=== PATIENT | female | born 1980 | race Caucasian/White ===

== ENCOUNTER 2017-09-03 17:08 | Emergency (ER) | payer OTHER ==
[~2017-09-03] VITALS: Ht 165.1 cm; Wt 90.0 kg
[~2017-09-03 17:08] MED LIST: MEDDOSEPAK PO; PRENATA6 PO
[2017-09-03] MEDS ORDERED: AMOX/K CLAV875 M1 PO (18:15)
[2017-09-03] MEDS ORDERED: FLOXIN OTIC0.3 % OT (18:15)
[2017-09-03] MEDS ORDERED: LORTAB 1010 MG PO (18:15)
[2017-09-03 18:42] VITALS: BP 118/77
== END 2017-09-03 18:58 | disposition home or self-care (01) | DRG 153 ==
LOC: ED 17:08
DX: H66.92 Otitis media, unspecified, left ear (principal)

== ENCOUNTER 2018-04-22 15:40 | Emergency (ER) | payer OTHER ==
[~2018-04-22] VITALS: Ht 165.1 cm; Wt 75.0 kg
[~2018-04-22 15:40] MED LIST changes: +AMOX/K CLAV875 M1 PO; +FLOXIN OTIC0.3 % OT; +LORTAB 1010 MG PO
[2018-04-22 16:30] LABS: HEMATOCRIT 37.2 % (37.0-47.0); HEMOGLOBIN 12.7 g/dl (12.0-16.0); IMMATURE GRANULOCYTES 0.2 % (0.0-1.0); MEAN CELL VOLUME 87.5 fL CALC (80.0-100.0); MEAN CORPUSCULAR HGB 29.9 pG CALC (26.0-32.0); MEAN CORPUSCULAR HGB CONC 34.1 g/L CALC (32.0-36.0); NEUT# 2.7 thou/uL (2.00-7.15); RED BLOOD COUNT 4.25 mill/uL (4.20-5.60); RED CELL DISTRI WIDTH 11.9 % (11.5-15.5)
[2018-04-22] MEDS ORDERED: TYLENOL # 31 TA1 PO (16:48)
[2018-04-22 16:52] LABS: ALBUMIN 4.1 g/dL (3.2-5.0); ALKALINE PHOSPHATASE 96 u/l (38-126); ANION GAP 13 (6-22 (CALC)); BILIRUBIN, TOTAL 0.3 mg/dL (0.0-1.4); BUN 13 mg/dL (7-17); BUN/CREATININE RATIO 19 (12-20 (CALC)); CARBON DIOXIDE 22 mmol/l (22-30); CHLORIDE 110 mmol/l (95-108); CREATININE 0.7 mg/dL (0.5-1.0); GFR > 60 ML/MIN (>=60 (CALC)); GFR FOR AFR.AMER. > 60 ML/MIN (>=60 (CALC)); LIPASE 241 u/l (23-300); POTASSIUM 3.7 mmol/l (3.5-5.1); SGOT/AST 19 u/l (14-36); SGPT/ALT 36 u/l (9-52); SODIUM 142 mmol/l (137-146); TOTAL PROTEIN 7.3 g/dL (6.3-8.2)
[2018-04-22 17:01] LABS: URINE BILIRUBIN - DIPSTICK NEGATIVE (NEGATIVE); URINE BLOOD DIPSTICK LARGE (NEGATIVE); URINE COLOR YELLOW; URINE GLUCOSE - DIPSTICK NEGATIVE (NEGATIVE); URINE KETONE NEGATIVE (NEGATIVE); URINE LEUK ESTERASE SMALL (Negative); URINE NITRITE - DIPSTICK NEGATIVE (Negative); URINE PH 6.5 (4.5-8.0); URINE PROTEIN - DIPSTICK NEGATIVE (NEG-TRACE); URINE SPECIFIC GRAVITY <=1.005; URINE UROBILINOGEN - DIPSTICK 0.2 E.U./dL (0.2)
[2018-04-22 17:05] LABS: URINE CLARITY CLEAR
[2018-04-22 17:12] LABS: URINE SQUAMOUS EPITHELIAL CELL FEW EPI/hpf (0-FEW)
[2018-04-22 18:20] VITALS: BP 112/64
== END 2018-04-22 18:20 | disposition home or self-care (01) | DRG 392 ==
LOC: ED 15:40
DX: R10.12 Left upper quadrant pain (principal); V43.52XA Car driver injured in collision with other type car in traffic accident, initial encounter
CPT/HCPCS: Q9967

== ENCOUNTER 2018-11-03 09:59 | Emergency (ER) | payer OTHER ==
[~2018-11-03] VITALS: Ht 165.1 cm; Wt 70.5 kg
[~2018-11-03 09:59] MED LIST changes: +TYLENOL # 31 TA1 PO
[2018-11-03] MEDS ORDERED: CEPHALEXIN500 M1 PO (10:07)
[2018-11-03 10:36] VITALS: BP 128/62
== END 2018-11-03 10:36 | disposition home or self-care (01) | DRG 605 ==
LOC: ED 09:59
DX: S61.217A Laceration without foreign body of left little finger without damage to nail, initial encounter (principal); W26.8XXA Contact with other sharp object(s), not elsewhere classified, initial encounter; Y93.K9 Activity, other involving animal care; Y92.89 Other specified places as the place of occurrence of the external cause; Y99.0 Civilian activity done for income or pay

== ENCOUNTER 2019-05-28 12:04 | Emergency (ER) | payer OTHER ==
[~2019-05-28] VITALS: Ht 165.1 cm; Wt 65.0 kg
[~2019-05-28 12:04] MED LIST changes: +CEPHALEXIN500 M1 PO
[2019-05-28 12:51] LABS: HEMATOCRIT 37.9 % (37.0-47.0); HEMOGLOBIN 13.1 g/dl (12.0-16.0); IMMATURE GRANULOCYTES 0.5 % (0.0-5.0); MEAN CELL VOLUME 88.6 fL CALC (80.0-100.0); MEAN CORPUSCULAR HGB 30.6 pG CALC (26.0-32.0); MEAN CORPUSCULAR HGB CONC 34.6 g/L CALC (32.0-36.0); NEUT# 4.5 thou/uL (2.00-7.15); RED BLOOD COUNT 4.28 mill/uL (4.20-5.60); RED CELL DISTRI WIDTH 11.8 % (11.5-15.5)
[2019-05-28 12:52] LABS: ALBUMIN 4.4 g/dL (3.2-5.0); ALKALINE PHOSPHATASE 75 u/l (38-126); ANION GAP 13 (6-22 (CALC)); BUN 17 mg/dL (7-17); BUN/CREATININE RATIO 25 (12-20 (CALC)); CARBON DIOXIDE 22 mmol/l (22-30); CHLORIDE 109 mmol/l (95-108); CREATININE 0.7 mg/dL (0.5-1.0); GFR > 60 ML/MIN (>=60 (CALC)); GFR FOR AFR.AMER. > 60 ML/MIN (>=60 (CALC)); LIPASE 100 u/l (23-300); POTASSIUM 3.9 mmol/l (3.5-5.1); SGOT/AST 26 u/l (14-36); SODIUM 141 mmol/l (137-146); TOTAL PROTEIN 7.7 g/dL (6.3-8.2)
[2019-05-28 12:55] LABS: BILIRUBIN, TOTAL 0.7 mg/dL (0.0-1.4)
[2019-05-28 14:37] LABS: BARBITURATES NEGATIVE (NEGATIVE); COCAINE NEGATIVE (NEGATIVE); METHADONE NEGATIVE (NEGATIVE); OXCYCODONE NEGATIVE (NEGATIVE); TETRAHYDROCANNABIONOL NEGATIVE (NEGATIVE); TRICYLIC ANTIDEPRESSANTS NEGATIVE (NEGATIVE)
[2019-05-28 16:13] VITALS: BP 103/84
== END 2019-05-28 16:15 | disposition home or self-care (01) | DRG 313 ==
LOC: ED 12:04
PROVIDERS: Emergency Medicine
DX: R07.89 Other chest pain (principal)

== ENCOUNTER 2021-11-04 00:10 | Emergency (ER) | payer OTHER ==
[~2021-11-04] VITALS: Ht 165.1 cm; Wt 58.0 kg
[2021-11-04 02:15] VITALS: BP 125/79
[2021-11-04] MEDS ORDERED: ULTRAM50 M1 PO (02:15)
[2021-11-04] MEDS ORDERED: CYCLOBENZAPRINE10 MG PO (02:15)
== END 2021-11-04 02:15 | disposition home or self-care (01) | DRG 914 ==
LOC: ED 00:10
DX: S39.92XA Unspecified injury of lower back, initial encounter (principal); M47.816 Spondylosis without myelopathy or radiculopathy, lumbar region; W11.XXXA Fall on and from ladder, initial encounter; Y92.008 Other place in unspecified non-institutional (private) residence as the place of occurrence of the external cause

== ENCOUNTER 2022-12-06 15:54 | Emergency (ER) | payer OTHER ==
[~2022-12-06] VITALS: Ht 165.1 cm; Wt 68.0 kg
[2022-12-06] VITALS (9 sets, daily range): BP systolic 89–109; BP diastolic 59–87
[~2022-12-06 15:54] MED LIST changes: +CYCLOBENZAPRINE10 MG PO; +ULTRAM50 M1 PO
[2022-12-06 16:41] LABS: BASO% 0.4 % (0-3); EOS% 0.9 % (0-8); HEMATOCRIT 38.9 % (37.0-47.0); HEMOGLOBIN 12.5 g/dl (12.0-16.0); IMMATURE GRANULOCYTES 0.2 % (0.0-5.0); LYMPH% 28.8 % (15-41); MEAN CELL VOLUME 92.8 fL CALC (80.0-100.0); MEAN CORPUSCULAR HGB 29.8 pG CALC (26.0-32.0); MEAN CORPUSCULAR HGB CONC 32.1 g/dL CAL (32.0-36.0); MONO% 7.2 % (2-13); NEUT# 3.37 thou/uL (2.00-7.15); NEUT% 62.5 % (42-76); RED BLOOD COUNT 4.19 mill/uL (4.20-5.60); RED CELL DISTRI WIDTH 12.2 % (11.5-15.5)
[2022-12-06 16:53] LABS: ALBUMIN 4.4 g/dL (3.2-5.0); ALKALINE PHOSPHATASE 62 u/l (38-126); ANION GAP 7 (6-22 (CALC)); BILIRUBIN, TOTAL 0.4 mg/dL (0.02-1.3); BUN 10 mg/dL (7-17); BUN/CREATININE RATIO 13 (12-20 (CALC)); CARBON DIOXIDE 29 mmol/l (22-30); CHLORIDE 107 mmol/l (95-108); CREATININE 0.8 mg/dL (0.5-1.0); GFR FOR AFR.AMER. > 60 ML/MIN (>=60 (CALC)); GFR OTHER RACES > 60 ML/MIN (>=60 (CALC)); POTASSIUM 3.8 mmol/l (3.5-5.1); SGOT/AST 80 u/l (14-36); SODIUM 139 mmol/l (137-146); TOTAL PROTEIN 7.4 g/dL (6.3-8.2)
[2022-12-06] MEDS ORDERED: DECADRON4 MG PO (18:42)
[2022-12-06] MEDS ORDERED: FLEXERIL5 M1 PO (18:47)
== END 2022-12-06 19:15 | disposition home or self-care (01) | DRG 392 ==
LOC: ED 15:54
PROVIDERS: Emergency Medicine
DX: R10.12 Left upper quadrant pain (principal); V43.52XA Car driver injured in collision with other type car in traffic accident, initial encounter
CPT/HCPCS: Q9967

== ENCOUNTER 2023-02-26 13:23 | Emergency (ER) | payer OTHER ==
[~2023-02-26] VITALS: Ht 165.1 cm; Wt 68.0 kg
[~2023-02-26 13:23] MED LIST changes: +DECADRON4 MG PO; +FLEXERIL5 M1 PO
[2023-02-26 13:41] VITALS: BP 109/76
[2023-02-26 14:00] VITALS: BP 120/95
[2023-02-26] MEDS ORDERED: TRAMADOL HYDROC50 M1 PO (14:26)
[2023-02-26] MEDS ORDERED: NAPROXEN500 MG PO (14:26)
[2023-02-26 14:30] VITALS: BP 111/78
[2023-02-26 14:54] VITALS: BP 111/78
== END 2023-02-26 14:58 | disposition home or self-care (01) ==
LOC: ED 13:23
DX: S90.32XA Contusion of left foot, initial encounter (principal); W20.8XXA Other cause of strike by thrown, projected or falling object, initial encounter